=== PATIENT | female | born 1990 | race Caucasian/White ===

== ENCOUNTER 2024-08-27 14:19 | Observation (INO) | payer OTHER, SELFPAY ==
[2024-08-27] VITALS (8 sets, daily range): BP systolic 102–136; BP diastolic 66–91; BMI 26.2
--- NOTE | 2024-08-27 10:11 | ED.GENMED ---
ED Provider Triage
<Michael Harris PA-C - Last Filed: 08/27/24 10:12>
-
Patient seen by provider in Triage?: Seen in Triage
34-year-old otherwise healthy female presents with epigastric abdominal pain that radiates to the back. There is associated nausea without vomiting.
Vital signs are stable through triage
Recommended further assessment. Labs ordered as well as ultrasound
History of Present Illness
<Michael Harris PA-C - Last Filed: 08/27/24 10:12>
General
Chief Complaint: Abdominal Symptoms
Time Seen by Provider: 08/27/24 10:18
<Ace Coburn PA-C - Last Filed: 08/27/24 13:25>
General
Source: patient
History of Present Illness
History of Present Illness:
34-year-old female with past medical history of anxiety and depression, previous substance abuse status post duodenal switch surgery a year and a half ago presenting to the emergency department for evaluation of waxing and waning upper abdominal
pain over the last 1 to 2 weeks, worse with eating and associated with nausea but no vomiting. Patient notes minimal p.o. intake to solids during this time but is still able to tolerate liquid. States pain prior to arrival was quite significant
but at present time is now much more mild. Pain initially started across the upper abdomen, now mainly mid abdomen and radiating towards her back. Did not take anything for the pain prior to arrival today.
Past History
<Michael Harris PA-C - Last Filed: 08/27/24 10:12>
Past History
ED Past Medical History: Psychiatric (anx/dep, PTSD, heroine addiction) and Other (Hepatitis C,)
Social History
Tobacco: Non-smoker
Alcohol: None
Drug: None
Personal: Single
Living: with family
Family History
Family History: Hypertension
<Ace Coburn PA-C - Last Filed: 08/27/24 13:25>
Past History
ED Past Surgical History: and Other
Social History
Personal:
Review of Systems
<Ace Coburn PA-C - Last Filed: 08/27/24 13:25>
Review of Systems
All Other Systems: ROS reviewed and negative except as documented in HPI and ROS
Phy Exam
<Ace Coburn PA-C - Last Filed: 08/27/24 13:25>
Physical Exam
Physical Exam:
GENERAL: Alert , in no apparent distress
EYE: clear conjunctiva b/l
HEAD: NCAT
ENT: mmm.
CARDIAC: Regular rate and rhythm .
LUNGS: Clear breath sounds bilaterally, no acute respiratory distress, no wheezes/rales/rhonchi
ABDOMEN: Soft, without focal tenderness, no r/g, no cvat
NEUROLOGICAL: Alert and oriented
SKIN: Warm and dry, skin intact.
MUSCULOSKELETAL: well perfused.
PSYCH: Normal and appropriate interaction.
Scores
<Ace Coburn PA-C - Last Filed: 08/27/24 13:25>
Heart Failure Risk
Heart Failure Risk Score: Not Applicable
Heart Score for Chest Pain Patients
STEMI patient?: Not applicable
Withdrawal Assessment of Alcohol
Withdrawal Assessment Completed?: Not applicable
Course
<Michael Harris PA-C - Last Filed: 08/27/24 10:12>
Orders/Labs/Results
Orders:
Orders
08/27/24 10:10
Test Result ONCE
US Abdomen - Appendix Only Urgent
Comment:
Reason For Exam: epigastric pain
08/27/24 10:33
Complete Blood Count/With Diff Urgent
Urinalysis Reflex To Culture Urgent
Date Specimen was Collected: 08/27/24
Time Specimen was Collected: 10:18
Urine Microscopic Reflex Cult Urgent
08/27/24 11:03
US Abdomen Complete/Upper Urgent
Comment:
Reason For Exam: upper abd pain
08/27/24 11:50
Comprehensive Metabolic Panel Urgent
HCG, Serum Qualitative Screen Urgent
Lipase Urgent
08/27/24 11:54
Ketorolac [Toradol] 30 mg IV NOW STA
Abnormal Lab Results
08/27/24 08/27/24
10:33 11:50
RBC 3.99 L 10^6/uL
(4.20-5.40)
Hgb 11.7 L g/dL
(12.0-16.0)
Hct 35.2 L %
(37.0-47.0)
Lipase 20 L U/L
(23-300)
Ur Occult Blood Reflex 3+ A
(Negative)
Urine Bilirubin 1+ A
(Negative)
Leukocyte Esterase Rfl Trace A
(Negative)
Urine RBC 90-100 A /HPF
(0-2)
Urine Bacteria (Reflex) Few A
(Negative)
08/27/24 10:33
08/27/24 11:50
Vital Signs
Initial and Last Documented VS:
Initial Vital Signs
Temp Pulse Resp BP Pulse Ox
99.2 F 114 18 136/91 100
08/27/24 10:09 08/27/24 10:09 08/27/24 10:09 08/27/24 10:09 08/27/24 10:09
Last Documented Vital Signs
Temp Pulse Resp BP Pulse Ox
99.2 F 97 17 124/73 100
08/27/24 10:09 08/27/24 12:30 08/27/24 12:30 08/27/24 12:03 08/27/24 12:30
<Ace Coburn PA-C - Last Filed: 08/27/24 13:25>
Orders/Labs/Results
Orders:
Orders
08/27/24 10:10
Test Result ONCE
US Abdomen - Appendix Only Urgent
Comment:
Reason For Exam: epigastric pain
08/27/24 10:33
Complete Blood Count/With Diff Urgent
Urinalysis Reflex To Culture Urgent
Date Specimen was Collected: 08/27/24
Time Specimen was Collected: 10:18
Urine Microscopic Reflex Cult Urgent
08/27/24 11:03
US Abdomen Complete/Upper Urgent
Comment:
Reason For Exam: upper abd pain
08/27/24 11:50
Comprehensive Metabolic Panel Urgent
HCG, Serum Qualitative Screen Urgent
Lipase Urgent
08/27/24 11:54
Ketorolac [Toradol] 30 mg IV NOW STA
Abnormal Lab Results
08/27/24 08/27/24
10:33 11:50
RBC 3.99 L 10^6/uL
(4.20-5.40)
Hgb 11.7 L g/dL
(12.0-16.0)
Hct 35.2 L %
(37.0-47.0)
Lipase 20 L U/L
(23-300)
Ur Occult Blood Reflex 3+ A
(Negative)
Urine Bilirubin 1+ A
(Negative)
Leukocyte Esterase Rfl Trace A
(Negative)
Urine RBC 90-100 A /HPF
(0-2)
Urine Bacteria (Reflex) Few A
(Negative)
08/27/24 10:33
08/27/24 11:50
Vital Signs
Initial and Last Documented VS:
Initial Vital Signs
Temp Pulse Resp BP Pulse Ox
99.2 F 114 18 136/91 100
08/27/24 10:09 08/27/24 10:09 08/27/24 10:09 08/27/24 10:09 08/27/24 10:09
Last Documented Vital Signs
Temp Pulse Resp BP Pulse Ox
99.2 F 97 17 124/73 100
08/27/24 10:09 08/27/24 12:30 08/27/24 12:30 08/27/24 12:03 08/27/24 12:30
<Ace Coburn PA-C - Last Filed: 08/27/24 13:25>
MDM/Problems Addressed
Differential Diagnosis Includes:
Symptomatic cholelithiasis, cholecystitis, choledocholithiasis, pancreatitis, GERD/gastritis
MDM/Problems Addressed:
34-year-old female presenting to the emergency department for evaluation of 1 to 2 weeks of upper abdominal pain with nausea and decreased p.o. intake to solids. Symptoms much worse when attempting to eat. Presently symptoms are okay but still
with some mild discomfort. Labs and ultrasound were ordered in triage. Reassessment following
<Ace Coburn PA-C - Last Filed: 08/27/24 13:25>
*Radiology
Radiology exam reviewed: radiology read reviewed
*Pulse Oximetry
Patient hypoxic: no
*Critical Care Note
Total Time (30-74mins, 75-104mins- exclusive of procedures): Not Applicable
<Ace Coburn PA-C - Last Filed: 08/27/24 13:25>
Patient Management
Discussion with other providers: Hospitalist and [employer] Operator
Escalation/DeEscalation of care consider admission/obs:
Upon returning from ultrasound patient is requesting something for pain as her pain was aggravated during the ultrasound. 30 mg of Toradol IV ordered.
Following Toradol patient did note improvement of pain. Ultrasound showed dilation of the common bile duct to 9 mm as well as mobile gallstones but no definitive for cholecystitis or choledocholithiasis. Given continuously worsening symptoms and
difficulty tolerating p.o. will admit for further evaluation with plan for MRCP. GI and general surgery were notified. They will consult as needed and hospitalist team to admit.
ED Attending Note
<Michael Harris PA-C - Last Filed: 08/27/24 10:12>
-
Portions of this chart may have been created with voice recognition software.� Occasional wrong word or��sound alike� substitutions may have occurred due to the inherent limitations of voice recognition software.
Discharge Plan
Departure
Patient Disposition: Admit
Date of Disposition: 08/27/24
Time of Disposition: 12:31
Presentation/result/management discussed w/ accepting MD/DO: Hospitalist
Discharge Problem:
Symptomatic cholelithiasis, Choledocholithiasis
Prescriptions:
No Action
methadone [Methadose] 10 MG/ML concentrate
80 mg PO BID
PNV cmb#95-ferrous fumarate-FA [] 1 EACH tablet
1 ea PO DAILY
Referrals:
Lenny Merrill MD [Family Provider] -
Interventions
Interventions:
*Risk Screen - Suicide Last Done: 08/27/24 10:08
*General Assessment Last Done: 08/27/24 10:10
*Neglect/Abuse Screening Last Done: 08/27/24 10:08
ED- Fall Risk Assessment Last Done: 08/27/24 10:09
*ED COVID-19 Vaccine History Last Done: 08/27/24 10:09
KX-Hxmsgy-Yesujigesv Assessment Last Done: 08/27/24 10:25
Discharge Date and Time
Print Language: IRISH
[2024-08-27 10:46] LABS: % Basophils 0.4 % (0-2); % Eosinophils 1.4 % (0-6); % Immature Granulocytes 0.3 % (0-0.5); % Lymphocytes 37.6 % (20.5-51.1); % Monocytes 4.6 % (1.7-9.3); % Neutrophils 55.7 % (42.2-75.2); Absolute Eosinophils 0.1 10^3/uL (0-0.7); Absolute Lymphocytes 2.7 10^3/uL (1.2-3.4); Absolute Monocytes 0.3 10^3/uL (0.1-0.6); Hematocrit 35.2 % (37.0-47.0); Hemoglobin 11.7 g/dL (12.0-16.0); Mean Corp Hgb Conc. 33.2 g/dL (33.0-37.0); Mean Corpuscular Hgb 29.3 pg (27.0-31.0); Mean Corpuscular Volume 88.2 fL (81.0-99.0); Mean Platelet Volume 10.2 fL (7.4-10.4); Nucleated Red Blood Cells % 0 %; Platelet Count 233 10^3/uL (130-400); Red Blood Cell Count 3.99 10^6/uL (4.20-5.40); Red Cell Dist. Width 12.6 % (11.5-14.5); White Blood Cell Count 7.2 10^3/uL (4.8-10.8)
[2024-08-27 10:47] LABS: Urine Albumin Trace (Neg - Trace); Urine Bilirubin 1+ (Negative); Urine Character Slightly Cloudy (Clear); Urine Color Yellow; Urine Glucose Negative (Negative); Urine Ketone Negative (Negative); Urine Leukocyte Trace (Negative); Urine Nitrite Negative (Negative); Urine Occult Blood 3+ (Negative); Urine Urobilinogen 1+ (Neg - 1+)
[2024-08-27 11:05] LABS: Urine Mucus Many; Urine Squamous Cell >30 /LPF (Few)
[2024-08-27 11:06] LABS: Urine Red Blood Cell 90-100 /HPF (0-2)
[2024-08-27 11:07] LABS: Urine Bacteria Few (Negative); Urine Calcium Oxalate Crystals Seen; Urine White Cell 0-2 /HPF (0-5)
[2024-08-27] MEDS: TORADOL 30 MG IV (12:00)
[2024-08-27 12:15] LABS: ALT (SGPT) 22 U/L (0-35); AST (SGOT) 31 U/L (14-36); Albumin 3.6 g/dl (3.5-5.0); Alkaline Phosphatase 64 U/L (38-126); Blood Urea Nitrogen 13 mg/dl (7-17); Carbon Dioxide 25 mmol/L (22-30); Chloride 106 mmol/L (98-107); Estimated Creatinine Clearance 104 ml/min; Glucose 71 mg/dl (70-99); Lipase 20 U/L (23-300); Potassium 4.1 mmol/L (3.5-5.1); Sodium 141 mmol/L (135-145); Total Bilirubin 0.4 mg/dl (0.2-1.3); Total Protein 6.5 g/dl (6.3-8.2); eGFR > 60.00
[2024-08-27 12:17] LABS: HCG, Serum Qualitative Screen Negative
--- NOTE | 2024-08-27 13:16 | HPS.HSE ---
Family Physician
-
Family Physician: Lenny Merrill
Chief Complaint
-
Abdominal Pain
History of Present Illness
Patient is a 34 y/o female past medical history of hypertension, anxiety / depression / PTSD and remote heroin abuse now on methadone who presents with abdominal pain. Patient reports she had duodenal switch for weight loss about 18 months. She
notes since that time she has been experiencing some intermittent abdominal pain. She reports over the last two week symptoms have been getting progressively worse. She describes pain mostly in the epigastric region, but last night started
radiating around her left rib cage to her back. She reports nausea after eating. She denies diarrhea. She fevers, sweats or chills.
Medical History
Past Medical History
Past Medical History: Reports Other
Additional Past Medical History:
Hypertension
Hypothyroidism
Anxiety / Depression / PTSD
Heroin Abuse
Hepatitis C (Antibody positive, Viral Load negative per patient)
Past Surgical History: Reports Other
Additional Past Surgical History:
Section
Duodenal Switch
Social History
Tobacco: Smoker (5 cigarettes per day)
Alcohol: None
Drug: Former User (Prior heroin use, sober for over 10 years)
Family History
Family History: Not pertinent
Allergies / Home Medications
Allergies reflects when Allergies were last updated in [facility].
Home Medications with original date entered in [facility]
Allergy/Medication List:
Allergies
Allergy/AdvReac Type Severity Reaction Status Date / Time
metals Allergy Rash Uncoded 10/03/23 23:13
Home Medications
methadone 10 mg/mL oral concentrate (Methadose) 80 mg PO BID 01/27/19
vit no.95-ferrous fumarate 28 mg-folic acid 800 mcg tablet () 1 ea PO DAILY 01/27/19
Review of Systems
-
A 12 point ROS was completed and negative except as noted: Yes
Constitutional: Denies Fever or Chills
Respiratory: Denies Cough or Trouble Breathing
Cardiac: Denies Chest Pain or Palpitations
Abdomen/GI: Reports See HPI
Physical Exam
Vital Signs
Vital Signs
Temp Pulse Resp BP Pulse Ox
99.2 F 97 17 124/73 100
08/27/24 10:09 08/27/24 12:30 08/27/24 12:30 08/27/24 12:03 08/27/24 12:30
Physical Exam
General: Comfortable and Conversant
HEENT: Anicteric and Moist mucous membranes
Respiratory: Clear and Non Labored Respirations
Cardiac: S1/S2 and Regular Rhythm
GI: Soft and Tender (Mild epigastric and left upper quadrant without rebound or gaurding)
Rectal: Deferred by Provider
Musculoskeletal: No Clubbing, No Cyanosis and No Edema
Skin: Warm and Dry
Neuro: Awake, Alert, Oriented and Nonfocal/grossly intact
Psych: Calm
Laboratory Results
-
08/27/24 10:33
08/27/24 11:50
Laboratory Results
Total Bilirubin 0.4 mg/dl (0.2-1.3) 08/27/24 11:50
AST 31 U/L (14-36) 08/27/24 11:50
ALT 22 U/L (0-35) 08/27/24 11:50
Alkaline Phosphatase 64 U/L (38-126) 08/27/24 11:50
Lipase 20 U/L (23-300) L 08/27/24 11:50
Abdomen/Appendix Ultrasound:
Mobile gallstones/sludge without sonographic evidence of acute cholecystitis.
The common bile duct is mildly dilated measuring 9 mm. No discrete choledocholithiasis. Recommend correlation with lab values for possible biliary obstruction.
No sonographic evidence of appendicitis.
Data Reviewed
-
Diagnostic Radiology: Report Reviewed by me
Lab Data: Labs Reviewed by me
Impression/Plan
-
Abdominal Pain, unclear etiology possibly biliary-related
-Check Abd MRI
-Allow clear liquids
-Pain control with Toradol
-Consult GI and General Surgery
Hypertension
-Continue lisinopril
Hypothyroidism
-Continue levothyroxine
Hx Heroin Abuse
-Continue methadone
DVT proph: Lovenox
Code Status: Full Code
--- NOTE | 2024-08-27 13:30 | PHANOTE ---
MED REC NOTE- CALLED [facility] AT [phone] , SPOKE TO REMA WHO GAVE ME A VERBAL DOSAGE VERIFICATION OVER THE PHONE AND I FAXED A MEDICAL RELEASE FORM SHE ASKED FOR.
--- NOTE | 2024-08-27 13:41 | W.PN.UPDATE ---
Update Note
Progress Note Update
This is an addendum to H&P written by JUANITA Ulrich
I saw and examined the patient.
The SANDWICH MAKER's note was reviewed and I agree with the note.
Comment:
Ms. Africa Hough is a 34 yo woman with hx heroin abuse now on methadone, s/p duodenal switch procedure 17 months ago presents to the ER with increasing frequency of abdominal pain. Pain is worse with eating and associated with nausea, no
vomiting.
Triage vitals with T 99.2, P 114, BP 136/91. On exam, she is conversant, in no acute distress. Mildly tender epigastric to left upper quadrant. Labs without leukocytosis and normal liver enzymes.
Appendix US:
IMPRESSION: No sonographic evidence of appendicitis.
Abdomen US:
IMPRESSION:
Mobile gallstones/sludge without sonographic evidence of acute cholecystitis.
The common bile duct is mildly dilated measuring 9 mm. No discrete choledocholithiasis. Recommend correlation with lab values for possible biliary obstruction.
spleen and pancreas normal
Abdominal pain with finding of multiple gall stones raising concern for biliary colic versus choledocholithiasis
-no e/o acute cholecystitis
-admit for further work-up with MRI/MRCP
-GI and GS consult
-pain control with PRN Toradol
Hx IVDA now on standing methadone
-continue home methadone dosing
[2024-08-27] MEDS: TORADOL 15 MG IV (17:52)
--- NOTE | 2024-08-27 18:33 | W.PN.UPDATE ---
Update Note
Progress Note Update
Notified by nursing that patient wanted to sign out against medical advice.
Patient expresses concern about being able to get her methadone as her usual pick-up is tomorrow morning. We reviewed that she will be given her methadone during her hospitalization. Despite my reassurance patient would still like to leave because
if she is discharged on Sunday she will not be able to get her methadone until Sunday morning.
I reviewed with patient that leaving could result in worsening abdominal pain, worsening biliary dysfunction or sepsis from ascending cholangitis. Patient is aware of the risks. I reviewed with her to come back to the emergency department if she
develops fevers or worsening abdominal pain. If she opts not to the return to the emergency department I encouraged her to follow-up with surgery as an outpatient.
AMA Paper Signed
== END 2024-08-27 18:59 | disposition left against medical advice (07) ==
LOC: ED 14:19
PROVIDERS: Physician Assistant; ADMITTING PHYSICIAN Student in an Organized Health Care Education/Training Program; EMERGENCY PHYSICIAN Student in an Organized Health Care Education/Training Program; FAMILY PHYSICIAN Family Medicine
DX: R10.10 Upper abdominal pain, unspecified (principal); K80.20 Calculus of gallbladder without cholecystitis without obstruction; R11.2 Nausea with vomiting, unspecified; F41.9 Anxiety disorder, unspecified; F32.A Depression, unspecified; F11.20 Opioid dependence, uncomplicated; F43.10 Post-traumatic stress disorder, unspecified; B19.20 Unspecified viral hepatitis C without hepatic coma; R10.13 Epigastric pain; I10 Essential (primary) hypertension; E03.9 Hypothyroidism, unspecified; F17.210 Nicotine dependence, cigarettes, uncomplicated; Z91.048 Other nonmedicinal substance allergy status; Z82.49 Family history of ischemic heart disease and other diseases of the circulatory system
CPT/HCPCS: 76700; 76705; 80053; 81003; 81015; 83690; 84703; 85025; 96374; 99285

== ENCOUNTER → 2025-02-09 09:11 | Outpatient (REF) | payer OTHER, SELFPAY | LOC: RAD 09:11 | PROVIDERS: ATTENDING PHYSICIAN Obstetrics & Gynecology; PRIMARYCARE PHYSICIAN Family Medicine | DX: O26.859 Spotting complicating pregnancy, unspecified trimester (principal) | CPT/HCPCS: 76801; 76817 ==

== ENCOUNTER → 2025-03-17 09:43 | Outpatient (REF) | payer OTHER, SELFPAY | LOC: PNTC 09:43 | PROVIDERS: ATTENDING PHYSICIAN Obstetrics & Gynecology | DX: Z36.0 Encounter for antenatal screening for chromosomal anomalies (principal); Z36.82 Encounter for antenatal screening for nuchal translucency | CPT/HCPCS: 76801; 76813 ==

== ENCOUNTER 2025-03-29 03:26 | Emergency (ER) | payer OTHER, SELFPAY ==
[2025-03-29 03:27] VITALS: BP 144/76
[2025-03-29 03:50] VITALS: BMI 25.9
--- NOTE | 2025-03-29 03:50 | EDRN ---
Pt 14 wks 4 days G4A1P2. Pt woke around 0250 and went to the bathroom to have a BM. Pt then urinated. When she was finished and still on the toilet, pt felt 'a water balloon fell out and popped.' Initially there was no blood in the
toilet but then there was an approximate quarter sized amount of blood. Pt called her OBGYN and left a message. Pt then noted more blood which prompted ED visit. Pt says she has some watery pink fluid on her pad now and says leakage has stopped.
Pt had mild cramps in the car ride to the ED and says they went away. Pt adds she had a hematoma in the beginning of her that resolved. Pt denies fever/chills, n/v, abd pain/cramping now, cp, sob.
[2025-03-29 04:29] LABS: % Basophils 0.4 % (0-2); % Eosinophils 1.3 % (0-6); % Immature Granulocytes 0.1 % (0-0.5); % Lymphocytes 40.9 % (20.5-51.1); % Monocytes 5.4 % (1.7-9.3); % Neutrophils 51.9 % (42.2-75.2); Absolute Eosinophils 0.1 10^3/uL (0-0.7); Absolute Lymphocytes 2.9 10^3/uL (1.2-3.4); Absolute Monocytes 0.4 10^3/uL (0.1-0.6); Absolute Neutrophils 3.7 10^3/uL (1.4-6.5); Hematocrit 33.2 % (37.0-47.0); Hemoglobin 11.2 g/dL (12.0-16.0); Mean Corp Hgb Conc. 33.7 g/dL (33.0-37.0); Mean Corpuscular Hgb 29.9 pg (27.0-31.0); Mean Corpuscular Volume 88.8 fL (81.0-99.0); Mean Platelet Volume 9.2 fL (7.4-10.4); Nucleated Red Blood Cells % 0 %; Platelet Count 277 10^3/uL (130-400); Red Blood Cell Count 3.74 10^6/uL (4.20-5.40); Red Cell Dist. Width 11.9 % (11.5-14.5); White Blood Cell Count 7.1 10^3/uL (4.8-10.8)
[2025-03-29 04:40] VITALS: BP 122/79
--- NOTE | 2025-03-29 06:02 | ED.GENMED ---
History of Present Illness
General
Chief Complaint: Problems
Source: patient
Time Seen by Provider: 03/29/25 05:45
History of Present Illness
History of Present Illness:
This patient is a 34-year-old female G4, P3 who presents emergency department with vaginal bleeding that she noted just prior to presentation. She estimates that she is approximately 14-1/2 weeks gestation. She denies any other complaints the
exception of lower abdominal cramping.
Past History
Past History
ED Past Medical History: Psychiatric (anx/dep, PTSD, heroine addiction) and Other (Hepatitis C,)
ED Past Surgical History: and Other
Social History
Tobacco: Non-smoker
Alcohol: None
Drug: None
Personal:
Living: with family
Family History
Family History: Hypertension
Phy Exam
Physical Exam
Physical Exam:
GENERAL: Alert , in no apparent distress
EYE: pupils equal and reactive
NECK: Supple, no significant adenopathy.
ENT: o/p clr, mmm.
CARDIAC: Regular rate and rhythm .
LUNGS: Clear breath sounds bilaterally, no acute respiratory distress, no wheezes/rales/rhonchi
ABDOMEN: Soft, without focal tenderness, no r/g, no cvat
NEUROLOGICAL: Alert and oriented, no focal neuro deficits
SKIN: Warm and dry, skin intact.
MUSCULOSKELETAL: No edema, well perfused.
PSYCH: Normal and appropriate interaction.
Course
Orders/Labs/Results
Orders:
Orders
03/29/25 04:02
US 2nd/3rd Trimester Urgent
Comment:
Reason For Exam: pt 14wk 4 days - concern water broke
03/29/25 04:15
Type+Screen Urgent
Beta HCG Quantitative Urgent
Is this a screen?: No
Complete Blood Count/With Diff Urgent
Abnormal Lab Results
03/29/25
04:15
RBC 3.74 L 10^6/uL
(4.20-5.40)
Hgb 11.2 L g/dL
(12.0-16.0)
Hct 33.2 L %
(37.0-47.0)
03/29/25 04:15
Vital Signs
Initial and Last Documented VS:
Initial Vital Signs
Temp Pulse Resp BP Pulse Ox
98.1 F 114 20 144/76 100
03/29/25 03:27 03/29/25 03:27 03/29/25 03:27 03/29/25 03:27 03/29/25 03:27
Last Documented Vital Signs
Temp Pulse Resp BP Pulse Ox
98.1 F 94 18 116/65 100
03/29/25 03:27 03/29/25 07:47 03/29/25 07:47 03/29/25 07:47 03/29/25 07:47
Information
Weeks gestation: N/A
Location: N/A
*Critical Care Note
Total Time (30-74mins, 75-104mins- exclusive of procedures): Not Applicable
Update Note
Update Note:
Patient presents to the Emergency Department with __vaginal bleeding and cramping
Number and Complexity of Problems Addressed at the Encounter
� Chronic conditions affecting care:
� Acute Exacerbation and/or Progression of Chronic Illness:
� Differential Diagnosis includes: But not limited to threatened AB, normal , etc. etc.
Amount and/or Complexity of Data to be Reviewed and Analyzed
� I performed an independent evaluation of and my interpretation is:
EKG:
CT:
Xrays:
Laboratory Studies: Generally unremarkable, Rh+, beta approximately 52,000.
Other: Verbal report ultrasound vision rupture of membranes, minimal fluid present, cervix slightly dilated.
� Review of other/old records reveals:
� Clinical information was obtained by an independent historian:
� Prescriptions/Medications Considered but not given:
� Further testing considered but not performed:
Risk of Complications and/or Morbidity or Mortality of Patient Management
� Social determinants of health affecting care:
� Discussion with other providers (PCP, Hospitalists, Consultants, etc):
� Escalation of care including admission/observation vs risk of discharge considered: 6:03 AM shortly after returning from ultrasound she developed the sense that she needed to use the bathroom with lower abdominal pain. I did a
vaginal speculum exam and there is a small amount of mucus and blood in the vaginal vault. She then indicated that she needed to urinate. Speculum was removed and patient was placed on a bedpan. Dr Valencia aware
After ultrasound report, Dr. Valencia made aware who is now at bedside. She has not yet passed the but is expected to do so soon. She would prefer to go home with expectant management with Dr. Miramontes is approving of. Patient was given a
specimen collection been and given close instructions regarding specimen collection, importance of follow-up, and reasons to return to the ER.
ED Attending Note
-
Portions of this chart may have been created with voice recognition software.� Occasional wrong word or��sound alike� substitutions may have occurred due to the inherent limitations of voice recognition software.
Discharge Plan
Departure
Patient Disposition: Home (Routine Discharge)
Date of Disposition: 03/29/25
Time of Disposition: 07:38
Patient with high blood pressure during this ER visit?: Yes
Condition: Good
Discharge Problem:
Miscarriage
Instructions: Miscarriage (DC), BLOOD PRESSURE
Prescriptions:
No Action
methadone [Methadose] 10 MG/ML concentrate
127 mg PO DAILY
Patient Comments:
PATIENT HAS TAKE HOME BOTTLES AND HAS TWO 82MG BOTTLES FOR TODAY BUT I INFORMED SHE TOOK BOTH DOSES FOR TODAY 08/27/24 AND IS DUE TOMORROW 08/28/24
acetaminophen [Tylenol] 325 mg Tablet
650 mg PO Q4HPRN PRN (Reason: MILD PAIN)
Theragen Tablet
1 tab PO DAILY
ferrous sulfate 325 mg (65 mg iron) Tablet
650 mg PO DAILY
biotin 1 mg Tablet
1 mg PO DAILY
cholecalciferol (vitamin D3) [Vitamin D3] 25 mcg (1,000 unit) Tablet
25 mcg PO DAILY
cyclobenzaprine [Flexeril] 10 mg Tablet
10 mg PO BID PRN (Reason: back spasms)
methadone 10 mg/5 mL Solution
132 mg PO .AFTERNOON
nifedipine 30 mg Tablet Extended Release
30 mg PO DAILY
famotidine [Pepcid] 20 mg Tablet
20 mg PO DAILY
1 tab PO DAILY
Referrals:
Chaz Watson MD [Family Provider] -
Elizabeth Miramontes DO [Active] - Next open appointment
Activity Restrictions/Additional Instructions:
Please follow Dr. Miramontes's instructions regarding close follow-up, specimen collection, and reasons to return the emergency department. IF YOU DEVELOP PERSISTENT PAIN, FEVER, CHEST PAIN, SHORTNESS OF BREATH, HEAVY BLEEDING, OR OTHER WORRISOME
SIGNS, PLEASE RETURN TO THE ER IMMEDIATELY!
Interventions
Interventions:
*Risk Screen - Suicide Last Done: 03/29/25 03:27
*General Assessment Last Done: 03/29/25 03:38
*Neglect/Abuse Screening Last Done: 03/29/25 03:27
*ED- Fall Risk Assessment Last Done: 03/29/25 04:18
*ED COVID-19 Vaccine History Last Done: 03/29/25 08:22
*Nursing Disposition Last Done: 03/29/25 08:22
ED-Female Genitourinary Assessment Last Done: 03/29/25 03:50
Discharge Date and Time
Discharge Date/Time: 03/29/25 08:23
Print Language: TURKISH
--- NOTE | 2025-03-29 06:10 | EDRN ---
Pt tearful upon returning from US. Pt complained of pain and said she had the urge to push. Pt on cell phone with her OBGYN informing her of what was going on. Dr Matthews to bedside, performed pelvic exam. Pt stated she had to go to the bathroom.
Pt placed on bedpan but was unable to urinate and asked to go to the bathroom. Pt ambulatory to bathroom, two hats and emesis basin placed in toilet in case anything besides urine is released. Pt said 'only urine came out, nothing else.'
--- NOTE | 2025-03-29 06:16 | EDRN ---
Pt voided urine in hat, small clot about size of a quarter and two very tiny clots noted in urine voided. Pt says pressure is gone now and she feels better.
[2025-03-29 07:47] VITALS: BP 116/65
== END 2025-03-29 08:23 | disposition home or self-care (01) ==
LOC: EMR 03:26
PROVIDERS: EMERGENCY PHYSICIAN Emergency Medicine; FAMILY PHYSICIAN Otolaryngology
DX: O03.9 Complete or unspecified spontaneous abortion without complication (principal)
CPT/HCPCS: 99284; 76805; 84702; 85025; 86850; 86900; 86901

== ENCOUNTER → 2025-04-01 14:35 | Outpatient (REF) | payer OTHER, SELFPAY | LOC: PNTC 14:35 | PROVIDERS: ATTENDING PHYSICIAN Obstetrics & Gynecology | DX: O36.80X0 Pregnancy with inconclusive fetal viability, not applicable or unspecified (principal); O42.912 Preterm premature rupture of membranes, unspecified as to length of time between rupture and onset of labor, second trimester; O35.5XX0 Maternal care for (suspected) damage to fetus by drugs, not applicable or unspecified; O10.012 Pre-existing essential hypertension complicating pregnancy, second trimester; O99.842 Bariatric surgery status complicating pregnancy, second trimester; B18.2 Chronic viral hepatitis C; O99.332 Smoking (tobacco) complicating pregnancy, second trimester | CPT/HCPCS: 76815 ==

== ENCOUNTER 2025-04-03 03:44 | Day surgery (SDC) | payer OTHER, SELFPAY ==
[2025-04-02 20:33] VITALS: BP 118/73
--- NOTE | 2025-04-02 20:37 | ED.GENMED ---
History of Present Illness
<Shelby Matthews MD - Last Filed: 04/02/25 20:48>
General
Chief Complaint: Problems
Source: patient, spouse and family
Time Seen by Provider: 04/02/25 20:32
History of Present Illness
History of Present Illness:
This patient is a G4, P3 female with EDC 09/23/2025 presented with a 14-1/2-week gestation on Sunday morning, at that time she was noted to have ultrasound consistent with ruptured membranes, and incompatible with survival, cervix was noted to be
dilated and considered an inevitable miscarriage. At that time, she elected, after consultation bedside with her OBSTETRICS NURSE, to go home with close follow-up. She presents tonight because she passed the , but has not yet passed the placenta.
This occurred approximately 50 minutes ago. She denies pain, bleeding, fever, chills, or other complaints. Patient is noted to be Rh+
Past History
<Shelby Matthews MD - Last Filed: 04/02/25 20:48>
Past History
ED Past Medical History: Psychiatric (anx/dep, PTSD, heroine addiction) and Other (Hepatitis C,)
ED Past Surgical History: and Other
Social History
Tobacco: Non-smoker
Alcohol: None
Drug: None
Personal:
Living: with family
Family History
Family History: Hypertension
Phy Exam
<Shelby Matthews MD - Last Filed: 04/02/25 20:48>
Physical Exam
Physical Exam:
GENERAL: Alert , in no apparent distress but understandably upset
EYE: pupils equal and round
NECK: Supple
ENT: mmm
CARDIAC: Regular rate and rhythm .
LUNGS: Clear breath sounds bilaterally, no acute respiratory distress, no wheezes/rales/rhonchi
ABDOMEN: Soft, without focal tenderness, no r/g
NEUROLOGICAL: Alert and oriented, grossly nonfocal
SKIN: Warm and dry, skin intact.
MUSCULOSKELETAL: No edema, well perfused.
PSYCH: Normal and appropriate interaction.
: poc fully expelled, cord noted from vagina, no active bleeding.
Course
<Shelby Matthews MD - Last Filed: 04/02/25 20:48>
Orders/Labs/Results
Orders:
Orders
04/02/25 20:35
0.9% Sodium Chloride 500 ml [Nss] 500 ml IV BOLUS
Oxytocin [Pitocin] 10 units IM NOW STA
04/02/25 20:37
Type And Crossmatch [Type+Screen] Urgent
Complete Blood Count/No Diff Urgent
04/02/25 20:43
LDRP Pathology Routine
Pre-Operative Diagnosis: threatened ab
Operative Procedure: na
Gestational Age: 15 weeks
Tissue Submitted: Other
Other Tissue Submitted: poc
04/03/25 00:41
Lidocaine 2% Mpf [Xylocaine Mpf 2%] 100 mg .ROUTE .STK-MED ONE
Propofol [Diprivan] 20 ml .ROUTE .STK-MED
04/03/25 00:42
Succinylcholine Chloride [Succinylcholine] 200 mg .ROUTE .STK-MED ONE
04/03/25 00:48
Midazolam HCl [Versed] 2 mg .ROUTE .STK-MED ONE
04/03/25 01:00
Flush (0.9% Sodium Chloride) [Flush (Nss)] See Dose Instructions IV PER PROTOCOL
04/03/25 01:29
CeFAZolin SODIUM [Ancef] 2,000 mg .ROUTE .STK-MED ONE
04/03/25 01:56
Methylergonovine Maleate [Methergine Injection] 0.2 mg .ROUTE .STK-MED ONE
miSOPROStol [Cytotec] 800 mcg .ROUTE .STK-MED ONE
04/03/25 01:58
OR Pathology Routine
Clinical History: retained placenta
Pre-Operative Diagnosis: retained placenta
Post-Operative Diagnosis: retained placenta
Operative Procedure: dilation and evacuation
Surgeon: van
Circulating Nurse: prasanna
Specimen Type: retained placenta
04/03/25 02:01
Methylergonovine Maleate [Methergine Injection] 0.2 mg .ROUTE .STK-MED ONE
04/03/25 02:18
Admit/Transfer Patient As Directed
Co-Sign Provider:
Level of Care: Post Proc/Surg Recovery
Assign to:: Medical/Surgical
Physician / Group: Fe
Transfer to: Medical/Surgical
Diagnosis: S/P Suction D&E and curettage for retained placenta
Patient Condition: Good
Reason for Hospitalization: retained placenta-> D&E
Expected length of stay greater than two midnights?: No
ELOS- Estimated Length of Stay in days: 1
I certify the patient meets the requirements for IP care: Yes
Reason for Overnight Stay: Bleeding/Bleeding Risk
PRN Pain Medication Management As Directed
May give lesser potent ordered pain med per pt: Yes
preference::
Protocol:: Medication orders for pain may be administered in a
manner that supports deferring to patient preference
when the pt is:
- Requesting an ordered lesser potent pain medication.
Least to most potent pain medications are defined
as: acetaminophen < NSAID < tramadol < opioids
(morphine, oxycodone, hydromorphone).
- Requesting a lesser dose of the same medication IF
ORDERED.
- Requesting a less intrusive route of administration
if both routes are prescribed by the provider (PO <
IV).
04/03/25 02:42
Acetaminophen [Tylenol] 650 mg PO Q4HPRN PRN
Ibuprofen [Motrin] 600 mg PO Q4HPRN PRN
Ondansetron Injectable [Zofran] 4 mg IV Q6HPRN PRN
Oxycodone [Roxicodone] 5 mg PO Q4HPRN PRN
Sennosides [Senokot] 8.6 mg PO BIDPRN PRN
Simethicone [Mylicon] 80 mg PO Q6HPRN PRN
04/03/25 02:42
Admit Patient As Directed
Co-Sign Provider:
Level of Care: Post Proc/Surg Recovery
Assign to:: Medical/Surgical
Physician / Group: Fe
Diagnosis: Retained placenta s/p D&E
Patient Condition: Good
Reason for Hospitalization: retained placenta s/p D&E
Expected length of stay greater than two midnights?: No
ELOS- Estimated Length of Stay in days: 1
I certify the patient meets the requirements for IP care: Yes
Reason for Overnight Stay: Bleeding/Bleeding Risk
Diagnosis: post-operative hysterectomy
VTE Contraindication Routine
VTE Mechanical Device Contraindication: Low Risk- LOS < 2 days
Pharmocologic Contraindication: Low Risk- LOS < 2 days
Risk assessment completed and pt is low risk: Yes
Activity As Directed
Activity Level: Out of Bed-Early Mobility
Advance Diet as Tolerated As Directed
Goal Diet: Regular
INT (Intravenous Needle Therapy) As Directed
Intake/ Output As Directed
Frequency: Per unit guidelines
Call for Urine Output less than: 30 mL over 1 hour
Comment: Strict Intake and Output
Notify MD As Directed
Notify physician if: Call doctor for temperature >100.4 F, systolic blood pressure > 150 or < 90, urine output
less than 30 mL over 1 hour, Pulse > 100 or < 50
Observe for Vaginal Bleeding As Directed
Vital Signs As Directed
Frequency: Other
Additional Instructions:: When blood pressure is within the target range:
repeat BP Q10min x 1hr, Q15min x 1hr, Q30min x 1hr, and Q1H x 4hr
Target BP < 160/110 mmHg
Vital Signs As Directed
Frequency: Post-operative guidelines
Call for:: temp > 100.4 F, SBP > 150 or < 90, Pulse > 100 or < 50
Rx Incentive Spirometry [RESP] Routine
Frequency: q1h while awake
04/03/25 Breakfast
Clear Liquid
At Your Request: Full Participation
04/03/25 06:10
Blood Urea Nitrogen IN AM
Complete Blood Count/With Diff IN AM
Creatinine IN AM
Electrolytes IN AM
04/03/25 08:00
Methadone HCl [Methadone 100 mg/10 ml] 132 mg PO DAILY
04/03/25 11:00
Methadone HCl [Methadone 100 mg/10 ml] 132 mg PO DAILY@1100
Abnormal Lab Results
04/02/25
20:37
RBC 3.82 L 10^6/uL
(4.20-5.40)
Hgb 11.5 L g/dL
(12.0-16.0)
Hct 33.3 L %
(37.0-47.0)
04/02/25 20:37
Vital Signs
Initial and Last Documented VS:
Initial Vital Signs
BP
118/73
04/02/25 20:33
Last Documented Vital Signs
Temp Pulse Resp BP Pulse Ox
99.0 F 88 16 110/82 98
04/03/25 10:45 04/03/25 10:45 04/03/25 10:45 04/03/25 10:45 04/03/25 10:45
<Reji Gil, DO - Last Filed: 04/06/25 06:42>
Orders/Labs/Results
Orders:
Orders
04/02/25 20:35
0.9% Sodium Chloride 500 ml [Nss] 500 ml IV BOLUS
Oxytocin [Pitocin] 10 units IM NOW STA
04/02/25 20:37
Type And Crossmatch [Type+Screen] Urgent
Complete Blood Count/No Diff Urgent
04/02/25 20:43
LDRP Pathology Routine
Pre-Operative Diagnosis: threatened ab
Operative Procedure: na
Gestational Age: 15 weeks
Tissue Submitted: Other
Other Tissue Submitted: poc
04/03/25 00:41
Lidocaine 2% Mpf [Xylocaine Mpf 2%] 100 mg .ROUTE .STK-MED ONE
Propofol [Diprivan] 20 ml .ROUTE .STK-MED
04/03/25 00:42
Succinylcholine Chloride [Succinylcholine] 200 mg .ROUTE .STK-MED ONE
04/03/25 00:48
Midazolam HCl [Versed] 2 mg .ROUTE .STK-MED ONE
04/03/25 01:00
Flush (0.9% Sodium Chloride) [Flush (Nss)] See Dose Instructions IV PER PROTOCOL
04/03/25 01:29
CeFAZolin SODIUM [Ancef] 2,000 mg .ROUTE .STK-MED ONE
04/03/25 01:56
Methylergonovine Maleate [Methergine Injection] 0.2 mg .ROUTE .STK-MED ONE
miSOPROStol [Cytotec] 800 mcg .ROUTE .STK-MED ONE
04/03/25 01:58
OR Pathology Routine
Clinical History: retained placenta
Pre-Operative Diagnosis: retained placenta
Post-Operative Diagnosis: retained placenta
Operative Procedure: dilation and evacuation
Surgeon: van
Circulating Nurse: prasanna
Specimen Type: retained placenta
04/03/25 02:01
Methylergonovine Maleate [Methergine Injection] 0.2 mg .ROUTE .STK-MED ONE
04/03/25 02:18
Admit/Transfer Patient As Directed
Co-Sign Provider:
Level of Care: Post Proc/Surg Recovery
Assign to:: Medical/Surgical
Physician / Group: Fe
Transfer to: Medical/Surgical
Diagnosis: S/P Suction D&E and curettage for retained placenta
Patient Condition: Good
Reason for Hospitalization: retained placenta-> D&E
Expected length of stay greater than two midnights?: No
ELOS- Estimated Length of Stay in days: 1
I certify the patient meets the requirements for IP care: Yes
Reason for Overnight Stay: Bleeding/Bleeding Risk
PRN Pain Medication Management As Directed
May give lesser potent ordered pain med per pt: Yes
preference::
Protocol:: Medication orders for pain may be administered in a
manner that supports deferring to patient preference
when the pt is:
- Requesting an ordered lesser potent pain medication.
Least to most potent pain medications are defined
as: acetaminophen < NSAID < tramadol < opioids
(morphine, oxycodone, hydromorphone).
- Requesting a lesser dose of the same medication IF
ORDERED.
- Requesting a less intrusive route of administration
if both routes are prescribed by the provider (PO <
IV).
04/03/25 02:42
Acetaminophen [Tylenol] 650 mg PO Q4HPRN PRN
Ibuprofen [Motrin] 600 mg PO Q4HPRN PRN
Ondansetron Injectable [Zofran] 4 mg IV Q6HPRN PRN
Oxycodone [Roxicodone] 5 mg PO Q4HPRN PRN
Sennosides [Senokot] 8.6 mg PO BIDPRN PRN
Simethicone [Mylicon] 80 mg PO Q6HPRN PRN
04/03/25 02:42
Admit Patient As Directed
Co-Sign Provider:
Level of Care: Post Proc/Surg Recovery
Assign to:: Medical/Surgical
Physician / Group: Fe
Diagnosis: Retained placenta s/p D&E
Patient Condition: Good
Reason for Hospitalization: retained placenta s/p D&E
Expected length of stay greater than two midnights?: No
ELOS- Estimated Length of Stay in days: 1
I certify the patient meets the requirements for IP care: Yes
Reason for Overnight Stay: Bleeding/Bleeding Risk
Diagnosis: post-operative hysterectomy
VTE Contraindication Routine
VTE Mechanical Device Contraindication: Low Risk- LOS < 2 days
Pharmocologic Contraindication: Low Risk- LOS < 2 days
Risk assessment completed and pt is low risk: Yes
Activity As Directed
Activity Level: Out of Bed-Early Mobility
Advance Diet as Tolerated As Directed
Goal Diet: Regular
INT (Intravenous Needle Therapy) As Directed
Intake/ Output As Directed
Frequency: Per unit guidelines
Call for Urine Output less than: 30 mL over 1 hour
Comment: Strict Intake and Output
Notify MD As Directed
Notify physician if: Call doctor for temperature >100.4 F, systolic blood pressure > 150 or < 90, urine output
less than 30 mL over 1 hour, Pulse > 100 or < 50
Observe for Vaginal Bleeding As Directed
Vital Signs As Directed
Frequency: Other
Additional Instructions:: When blood pressure is within the target range:
repeat BP Q10min x 1hr, Q15min x 1hr, Q30min x 1hr, and Q1H x 4hr
Target BP < 160/110 mmHg
Vital Signs As Directed
Frequency: Post-operative guidelines
Call for:: temp > 100.4 F, SBP > 150 or < 90, Pulse > 100 or < 50
Rx Incentive Spirometry [RESP] Routine
Frequency: q1h while awake
04/03/25 Breakfast
Clear Liquid
At Your Request: Full Participation
04/03/25 06:10
Blood Urea Nitrogen IN AM
Complete Blood Count/With Diff IN AM
Creatinine IN AM
Electrolytes IN AM
04/03/25 08:00
Methadone HCl [Methadone 100 mg/10 ml] 132 mg PO DAILY
04/03/25 11:00
Methadone HCl [Methadone 100 mg/10 ml] 132 mg PO DAILY@1100
Abnormal Lab Results
04/02/25
20:37
RBC 3.82 L 10^6/uL
(4.20-5.40)
Hgb 11.5 L g/dL
(12.0-16.0)
Hct 33.3 L %
(37.0-47.0)
04/02/25 20:37
Vital Signs
Initial and Last Documented VS:
Initial Vital Signs
BP
118/73
04/02/25 20:33
Last Documented Vital Signs
Temp Pulse Resp BP Pulse Ox
99.0 F 88 16 110/82 98
04/03/25 10:45 04/03/25 10:45 04/03/25 10:45 04/03/25 10:45 04/03/25 10:45
Information
Weeks gestation: N/A
Location: N/A
<Reji Gil DO - Last Filed: 04/06/25 06:42>
*Critical Care Note
Total Time (30-74mins, 75-104mins- exclusive of procedures): Not Applicable
<Shelby Matthews MD - Last Filed: 04/02/25 20:48>
Update Note
Update Note:
Patient presents to the Emergency Department with passed products of conception____
Number and Complexity of Problems Addressed at the Encounter
� Chronic conditions affecting care:
� Acute Exacerbation and/or Progression of Chronic Illness:
� Differential Diagnosis includes:bu tnot limited to retained placenta, miscarriage, etc etc
Amount and/or Complexity of Data to be Reviewed and Analyzed
� I performed an independent evaluation of and my interpretation is:
EKG:
CT:
Xrays:
Laboratory Studies:
Other:
� Review of other/old records reveals:
� Clinical information was obtained by an independent historian:
� Prescriptions/Medications Considered but not given:
� Further testing considered but not performed:
Risk of Complications and/or Morbidity or Mortality of Patient Management
� Social determinants of health affecting care:
� Discussion with other providers (PCP, Hospitalists, Consultants, etc):
� Escalation of care including admission/observation vs risk of discharge considered: Pt without bleeding or pain at this time. Case d/w Dr Davalos, agrees with 10 mg of oxytocin, ivf, npo, type and screen, cbc and watchful
waiting at this time. TT from Dr Oliveira confirming that lab sending specimen container so we can send poc. Will continue to monitor closely.
<Reji Gil, DO - Last Filed: 04/06/25 06:42>
Update Note
Update Note:
Patient presents to the Emergency Department with passed products of conception____
Number and Complexity of Problems Addressed at the Encounter
� Chronic conditions affecting care:
� Acute Exacerbation and/or Progression of Chronic Illness:
� Differential Diagnosis includes:bu tnot limited to retained placenta, miscarriage, etc etc
Amount and/or Complexity of Data to be Reviewed and Analyzed
� I performed an independent evaluation of and my interpretation is:
EKG:
CT:
Xrays:
Laboratory Studies:
Other:
� Review of other/old records reveals:
� Clinical information was obtained by an independent historian:
� Prescriptions/Medications Considered but not given:
� Further testing considered but not performed:
Risk of Complications and/or Morbidity or Mortality of Patient Management
� Social determinants of health affecting care:
� Discussion with other providers (PCP, Hospitalists, Consultants, etc):
� Escalation of care including admission/observation vs risk of discharge considered: Pt without bleeding or pain at this time. Case d/w Dr Davalos, agrees with 10 mg of oxytocin, ivf, npo, type and screen, cbc and watchful
waiting at this time. TT from Dr Oliveira confirming that lab sending specimen container so we can send poc. Will continue to monitor closely.
0014 Dr. Miramontes at bedside. for OR for further D&E
ED Attending Note
<Shelby Matthews MD - Last Filed: 04/02/25 20:48>
-
Portions of this chart may have been created with voice recognition software.� Occasional wrong word or��sound alike� substitutions may have occurred due to the inherent limitations of voice recognition software.
Discharge Plan
Departure
Patient Disposition: OR
Date of Disposition: 04/03/25
Time of Disposition: 00:15
Admit to: OR
Presentation/result/management discussed w/ accepting MD/DO: Dr. Miramontes
Discharge Problem:
Incomplete miscarriage
Interventions
Interventions:
*Risk Screen - Suicide Last Done: 04/02/25 20:50
*General Assessment Last Done: 04/02/25 20:47
*Neglect/Abuse Screening Last Done: 04/02/25 20:50
*ED- Fall Risk Assessment Last Done: 04/02/25 20:47
*ED COVID-19 Vaccine History Last Done: 04/02/25 20:47
*Nursing Disposition Last Done: 04/03/25 01:31
ED-Female Genitourinary Assessment Last Done: 04/02/25 20:50
Discharge Date and Time
Discharge Date/Time: 04/03/25 01:31
[2025-04-02 20:56] LABS: Hematocrit 33.3 % (37.0-47.0); Hemoglobin 11.5 g/dL (12.0-16.0); Mean Corp Hgb Conc. 34.5 g/dL (33.0-37.0); Mean Corpuscular Hgb 30.1 pg (27.0-31.0); Mean Corpuscular Volume 87.2 fL (81.0-99.0); Mean Platelet Volume 9.1 fL (7.4-10.4); Platelet Count 320 10^3/uL (130-400); Red Blood Cell Count 3.82 10^6/uL (4.20-5.40); Red Cell Dist. Width 11.8 % (11.5-14.5); White Blood Cell Count 10.4 10^3/uL (4.8-10.8)
[2025-04-02] MEDS: PITOCIN 10 UNITS IM (20:56)
[2025-04-02] MEDS: NSS 500 IV (20:56)
[2025-04-02 21:00] VITALS: BP 110/72
[2025-04-02 21:40] VITALS: BP 132/78
[2025-04-02 22:00] VITALS: BP 114/79
[2025-04-02 23:00] VITALS: BP 116/65
[2025-04-03] VITALS (10 sets, daily range): BP systolic 100–129; BP diastolic 61–82; BMI 25.6
--- NOTE | 2025-04-03 02:28 | W.IMMPOSTOP ---
Surgical Immed Post Op Note
-
Primary Surgeon: Adarsh Miramontes DO
Assisting Surgeon: none
Pre-op Diagnosis: Retained placenta s/p spontaneous miscarriage at 15wk
Post-op Diagnosis: same
Procedure Performed: Suction Dilation and evacuation under ultrasound guidance
Anesthesia Type: general ET Dr. Mcclellan
Specimen / Cultures: products of conception/retained placenta
Estimated Blood Loss: 700ml
Complications: none
Operative Findings: Uterus enlarged with retained placenta. Products of conception removed from uterus under ultrasound guidance.
Some initial brisk bleeding responded to Tranexamic acid, cytotec 800mg [place].
Blood type A positive
Counts correct times 2.
--- NOTE | 2025-04-03 06:07 | PTCARENOTE ---
Pt admitted from PACU. Admissions called due inability to transfer pt. Pt assessed as per flow sheet. Pt denies pain and SOB. BP's are slightly soft. Peripad is clean thus far. Pt educated on s/s of heavy vaginal bleeding and when to call staff. Pt
reminded that she is currently on a clear liquid diet. Called pharmacy regarding Methadone orders. Pharmacy states they will call the clinic when it's open to verify dosage. No s/s of distress assessed. Will continue to monitor.
[2025-04-03 06:45] LABS: Blood Urea Nitrogen 9 mg/dl (7-17); Carbon Dioxide 22 mmol/L (22-30); Chloride 109 mmol/L (98-107); Estimated Creatinine Clearance 121 ml/min; Potassium 4.1 mmol/L (3.5-5.1); Sodium 135 mmol/L (135-145)
[2025-04-03 06:55] LABS: % Basophils 0.1 % (0-2); % Immature Granulocytes 0.4 % (0-0.5); % Lymphocytes 12.6 % (20.5-51.1); % Monocytes 2.1 % (1.7-9.3); % Neutrophils 84.8 % (42.2-75.2); Absolute Lymphocytes 1.2 10^3/uL (1.2-3.4); Absolute Monocytes 0.2 10^3/uL (0.1-0.6); Absolute Neutrophils 8.3 10^3/uL (1.4-6.5); Hematocrit 22.5 % (37.0-47.0); Hemoglobin 7.7 g/dL (12.0-16.0); Mean Corp Hgb Conc. 34.2 g/dL (33.0-37.0); Mean Corpuscular Volume 87.5 fL (81.0-99.0); Mean Platelet Volume 9.6 fL (7.4-10.4); Nucleated Red Blood Cells % 0 %; Platelet Count 266 10^3/uL (130-400); Red Blood Cell Count 2.57 10^6/uL (4.20-5.40); Red Cell Dist. Width 11.9 % (11.5-14.5); White Blood Cell Count 9.7 10^3/uL (4.8-10.8)
--- NOTE | 2025-04-03 07:18 | PTCARENOTE ---
Pt called RN stating she wanted to sign out AMA. Discussed with the pt the need for closer monitoring as her H&H fell precipitously. Pt stated she wanted to go home and cry. After discussing further pt stated she would what for the team to round. Pt
given quiet time in her room to reflect. Offered to listen to the pt discuss feelings. No s/s of distress assessed.
[2025-04-03] MEDS: TYLENOL 650 MG PO (08:43)
--- NOTE | 2025-04-03 10:10 | W.PN.OBG.DWH ---
Today's Communication / Plan
-
Stable for dc home
Assessment/Plan
-
1. Postop S/P Suction D&E for hemorrhage and reatined plcenta after miscarriage at 15 wks.
2. Anemia- asymptomatic
EBL from surgery estimated 800ml.
Pt is asymptomatic in terms of anemia. She declines transfusion. She is not orthostatic so I am comfortable with her going home.
3. HTN -takes nifedipine 30mgXE at home
She will come for postop follow up in 3-4 wks.
Reviewed s/s to call for: dizziness/lightheadedness or heavy bleeding should go to ER.
Nothing per vagina for 4 wks.
Sent tissue for chromosomal studies.
Subjective Data
-
Postop check
[place] is with . Tearful and asking to go home.
Takes her methadone at 5-6 am and was told pharmacy won't release until closer to 11 am.
Denies any dizziness or lightheadedness. Has been up to bathroom ambulating without symptoms.
States bleeding is light. Not passing any clots. No CP or shortness of breath
Objective Data
-
Laboratory Results
04/03/25 06:10
04/03/25 06:10
Vital Signs
Temp Pulse Resp BP Pulse Ox
99 F 87 16 104/61 97
04/03/25 07:00 04/03/25 07:00 04/03/25 07:00 04/03/25 07:00 04/03/25 07:00
VSS afeb
BP lying 124/80 Pulse 83
BP sitting 118/80 Pulse 96
BP standing 142/90 pulse 116
Cor regular rate
Pulm: breathing easily
Abd: soft NDNT
Sara: no active vaginal bleeding
ext: no calf pain or shortness of breath
[2025-04-03] MEDS: METHADONE 100 MG/10 ML 132 MG PO (10:43)
--- NOTE | 2025-04-03 11:11 | CM ---
CM following re: discharge planning.
Reviewed pt's chart, met with pt and pt's at bedside.
Pt is a 34 year old female, admitted with primary dx of s/p Suction Dilation and evacuation under ultrasound guidance.
Pt reports she lives with and 2 children 2SH, 3 steps to enter. 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
Discharge order noted. Both pt and her are aware and stated he will transport his home. No after care VN services indicated.
PCP: Lenny Merrill
Pharmacy: [facility]
D/C plan: home with no after care VN services. to transport.
== END 2025-04-03 11:11 | disposition home or self-care (01) ==
LOC: PACU 03:44
PROVIDERS: Obstetrics & Gynecology; ATTENDING PHYSICIAN Internal Medicine; EMERGENCY PHYSICIAN Emergency Medicine; FAMILY PHYSICIAN Family Medicine
DX: O03.4 Incomplete spontaneous abortion without complication (principal); O41.1420 Placentitis, second trimester, not applicable or unspecified; Z3A.15 15 weeks gestation of pregnancy
CPT/HCPCS: 59812; 88305; 88307; 76998; 80051; 82565; 84520; 85025; 85027; 86850; 86900; 86901; 96372; 99284

== ENCOUNTER 2025-05-08 16:05 | Observation (INO) | payer OTHER, SELFPAY ==
[2025-05-08] VITALS (24 sets, daily range): BP systolic 79–111; BP diastolic 48–73; BMI 25.7
[2025-05-08] MEDS: NSS 1000 IV (12:13)
[2025-05-08 12:22] LABS: % Basophils 0.8 % (0-2); % Eosinophils 1.9 % (0-6); % Immature Granulocytes 0.3 % (0-0.5); % Lymphocytes 37.2 % (20.5-51.1); % Monocytes 5.2 % (1.7-9.3); % Neutrophils 54.6 % (42.2-75.2); Absolute Basophils 0.1 10^3/uL (0-0.2); Absolute Eosinophils 0.2 10^3/uL (0-0.7); Absolute Lymphocytes 4.4 10^3/uL (1.2-3.4); Absolute Monocytes 0.6 10^3/uL (0.1-0.6); Absolute Neutrophils 6.4 10^3/uL (1.4-6.5); Hematocrit 30.1 % (37.0-47.0); Hemoglobin 9.3 g/dL (12.0-16.0); Mean Corp Hgb Conc. 30.9 g/dL (33.0-37.0); Mean Corpuscular Hgb 25.7 pg (27.0-31.0); Mean Corpuscular Volume 83.1 fL (81.0-99.0); Mean Platelet Volume 9.5 fL (7.4-10.4); Nucleated Red Blood Cells % 0 %; Platelet Count 408 10^3/uL (130-400); Red Blood Cell Count 3.62 10^6/uL (4.20-5.40); Red Cell Dist. Width 13.5 % (11.5-14.5); White Blood Cell Count 11.8 10^3/uL (4.8-10.8)
[2025-05-08] MEDS: TRANEXAMIC ACID 100 IV (12:29)
[2025-05-08 12:46] LABS: ALT (SGPT) 44 U/L (0-35); AST (SGOT) 49 U/L (14-36); Albumin 3.6 g/dl (3.5-5.0); Alkaline Phosphatase 97 U/L (38-126); Blood Urea Nitrogen 9 mg/dl (7-17); Calcium 8.7 mg/dl (8.4-10.2); Carbon Dioxide 22 mmol/L (22-30); Chloride 111 mmol/L (98-107); Estimated Creatinine Clearance 104 ml/min; Glucose 121 mg/dl (70-99); Potassium 3.7 mmol/L (3.5-5.1); Sodium 141 mmol/L (135-145); Total Bilirubin 0.3 mg/dl (0.2-1.3); Total Protein 6.5 g/dl (6.3-8.2); eGFR > 60.00
--- NOTE | 2025-05-08 12:54 | ED.GENMED ---
History of Present Illness
General
Chief Complaint: Vaginal Bleeding
Source: patient
Exam Limitations: none
Time Seen by Provider: 05/08/25 11:59
Nursing documentation reviewed up to this point in time: agreed with
History of Present Illness
History of Present Illness:
The patient is a pleasant 34-year-old female who underwent a D&C for an incomplete miscarriage on 04/03/2025. Patient reports that she has not had much of any vaginal bleeding since the end of March until this morning at around 9 AM when she suddenly
started passing large bright red clots of blood. Patient reports feeling lightheaded. She denies being on any blood thinners. She reports she took 4 home test and they were all negative.
Past History
Past History
ED Past Medical History: Psychiatric (anx/dep, PTSD, heroine addiction) and Other (Hepatitis C,)
ED Past Surgical History: and Other
Social History
Tobacco: Non-smoker
Alcohol: None
Drug: None
Personal:
Living: with family
Employment: Other
Family History
Family History: Hypertension
Review of Systems
Review of Systems
Allergies reviewed?: Yes
All Other Systems: ROS reviewed and negative except as documented in HPI and ROS
Constitutional: Reports no symptoms
EENT: Reports no symptoms
Respiratory: Reports no symptoms
Cardiac: Reports no symptoms
ABD/GI: Reports no symptoms
: Reports bleeding
Musculoskeletal: Reports no symptoms
Skin: Reports no symptoms
Neurological: Reports no symptoms
Endocrine: Reports no symptoms
Hematologic/Lymphatic: Reports no symptoms
Psychiatric: Reports no symptoms
Phy Exam
Physical Exam
Physical Exam:
Physical Exam
General: Patient appears pale but is fully awake and alert
Neck: supple. no meningeal signs. normal psoterior pharynx
Heart: Tachycardic
Lungs: no acute respiratory distress. clear bilaterally
Abdomen: normal bowel sounds. not tender. no CVAT
Neuro: alert and oriented. no focal neurological deficits
Skin: Pale, dry
Psychiatric: well kept. interactive and cooperative
Extremities: no edema. no calf tenderness. negative homans. good distal pulses
Course
Orders/Labs/Results
Orders:
Orders
05/08/25 12:06
Beta HCG Quantitative Urgent
Is this a screen?: No
05/08/25 12:07
0.9% Sodium Chloride 1000 ml [Nss] 1,000 ml IV BOLUS
05/08/25 12:09
EKG [Electrocardiogram (*1)] Urgent
Reason for Study: Bradycardia / Tachycardia
EKG- Treatment ONCE
05/08/25 12:14
Type+Screen Urgent
Complete Blood Count/With Diff Urgent
Comprehensive Metabolic Panel Urgent
05/08/25 12:21
US Pelvis Transvaginal Only Stat
Comment: bedside please
Reason For Exam: heavy vaginal bleeding, possible retained products
05/08/25 12:24
Tranexamic Acid 1000 mg/100 ml [Tranexamic Acid] 1,000 mg in 100 ml IV ONCE
05/08/25 12:29
TRIP MOTOR OPERATOR CONSULT Urgent
Consulting Provider: Massiel Davalos
Was physician already notified: Yes
Reason for consult: vag bleeding
05/08/25 13:15
Hemoglobin Urgent
05/08/25 13:35
* Blood Bank Products Urgent
's Orders: jimmie
Blood Bank Products: *Packed RBC Leuko(PRBC's)
Quantity: 1
Transfuse Today: Yes
Is product needed for scheduled surgery?: No
Reason: Bleeding
IV Insert/Care/Rem.- Treatment PRN
Abnormal Lab Results
05/08/25
12:14
WBC 11.8 H 10^3/uL
(4.8-10.8)
RBC 3.62 L 10^6/uL
(4.20-5.40)
Hgb 9.3 L g/dL
(12.0-16.0)
Hct 30.1 L %
(37.0-47.0)
MCH 25.7 L pg
(27.0-31.0)
MCHC 30.9 L g/dL
(33.0-37.0)
Plt Count 408 H 10^3/uL
(130-400)
Absolute Lymphs (auto) 4.4 H 10^3/uL
(1.2-3.4)
Chloride 111 H mmol/L
(98-107)
Glucose 121 H mg/dl
(70-99)
AST 49 H U/L
(14-36)
ALT 44 H U/L
(0-35)
Crossmatch IS Only See Detail
05/08/25 12:14
Vital Signs
Initial and Last Documented VS:
Initial Vital Signs
Temp Pulse Resp BP Pulse Ox
98.5 F 92 16 107/70 100
05/08/25 11:50 05/08/25 11:50 05/08/25 11:50 05/08/25 11:50 05/08/25 11:50
Last Documented Vital Signs
Temp Pulse Resp BP Pulse Ox
98.5 F 90 12 91/73 97
05/08/25 11:50 05/08/25 13:22 05/08/25 12:10 05/08/25 12:10 05/08/25 12:54
MDM/Problems Addressed
Differential Diagnosis Includes:
Retained products of conception, heavy menstrual period, ectopic
MDM/Problems Addressed:
Patient presents with acute heavy vaginal bleeding
*Radiology
Radiology exam reviewed: radiology read reviewed
*Pulse Oximetry
SaO2: 97
Oxygen Mode of Delivery: Room air
Patient hypoxic: no
Comment: Patient is 97% on room air
*EKG
Interpreted by ED Provider?: NA
*Sticker Machine Operator Interpretation
Rate: tachycardiac
Interpretation: abnormal
Rhythm: sinus
*Critical Care Note
Total Time (30-74mins, 75-104mins- exclusive of procedures): 45 minutes
comment:
45 minutes critical care given to patient including frequent reassessments of her heart rate, mental status, speaking to oil and gas field technician as well as reviewing her lab work and speaking to gynecology
Data Reviewed
Review of Other/Old Records Reveals: Operative Reports (Operative report reviewed from 04/03/2025 when patient had products removed for retained products)
Source: patient
Patient Management
Social determinants of health affecting care: Strong social support
Discussion with other providers: Other (Gynecology who agreed to evaluate the patient at bedside)
Escalation/DeEscalation of care consider admission/obs:
Patient's ultrasound shows retained products of conception.
Patient is tachycardic and hypotensive and is experiencing heavy vaginal bleeding. Therefore, written consent obtained for blood products and 1 unit of blood ordered.
Patient going to the OR with gynecology
ED Attending Note
-
Portions of this chart may have been created with voice recognition software.� Occasional wrong word or��sound alike� substitutions may have occurred due to the inherent limitations of voice recognition software.
Discharge Plan
Departure
Patient Disposition: OR
Date of Disposition: 05/08/25
Time of Disposition: 13:36
Admit to doctor: Susannah
Presentation/result/management discussed w/ accepting MD/DO: Susannah
Patient with high blood pressure during this ER visit?: No
Condition: Critical
Discharge Problem:
Retained products of conception, Acute blood loss anemia
Prescriptions:
No Action
methadone [Methadose] 10 MG/ML concentrate
132 mg PO DAILY
Patient Comments:
PATIENT HAS TAKE HOME BOTTLES AND HAS TWO 82MG BOTTLES FOR TODAY BUT I INFORMED SHE TOOK BOTH DOSES FOR TODAY 08/27/24 AND IS DUE TOMORROW 08/28/24
acetaminophen [Tylenol] 325 mg Tablet
650 mg PO Q4HPRN PRN (Reason: MILD PAIN)
therapeutic multivitamin Tablet
1 tab PO DAILY
ferrous sulfate 325 mg (65 mg iron) Tablet
650 mg PO DAILY
biotin 1 mg Tablet
1 mg PO DAILY
cholecalciferol (vitamin D3) [Vitamin D3] 25 mcg (1,000 unit) Tablet
25 mcg PO DAILY
cyclobenzaprine 10 mg Tablet
10 mg PO BID PRN (Reason: back spasms)
methadone 10 mg/5 mL Solution
132 mg PO .AFTERNOON
Rx Instructions:
PATIENT GETS METHADONE FILLED AT [facility]. SPOKE TO REMA WHO VERIFIED THERE WAS A RECENT DOSE INCREASE ON 04/01/25 TO 132MG DAILY. CONFIRMED THAT PATIENT RECEIVES 132MG DAILY AND 132MG IN THE AFTERNOON. THEIR PHONE
NUMBER IS [phone]
nifedipine 30 mg Tablet Extended Release
30 mg PO DAILY
famotidine [Pepcid] 20 mg Tablet
20 mg PO DAILY
1 tab PO DAILY
ibuprofen 600 mg Tablet
600 mg PO Q4HPRN PRN (Reason: mild cramps) Qty: 0 0RF
Referrals:
Lenny Merrill MD [Family Provider, Family Practice]
Interventions
Interventions:
*Risk Screen - Suicide Last Done: 05/08/25 12:02
*General Assessment Last Done: 05/08/25 12:02
*Neglect/Abuse Screening Last Done: 05/08/25 12:02
*ED- Fall Risk Assessment Last Done: 05/08/25 12:02
*ED COVID-19 Vaccine History Last Done: 05/08/25 12:02
ED-Female Genitourinary Assessment Last Done: 05/08/25 12:05
Discharge Date and Time
Print Language: NIUEAN
--- NOTE | 2025-05-08 13:57 | HPS.HSE ---
Family Physician
-
Family Physician: Lenny Merrill
Chief Complaint
-
heavy vaginal bleeding
History of Present Illness
HPI: Patient is a 34yo who presents to the ED with complaints of heavy vaginal bleeding. She had a D&E on 04/03 for a retained placenta after a 15 week demise. She reports she stopped bleeding about 10 days after the procedure. This morning
around 9 am, she started having heavy bleeding where she was soaking through pads and passing large clots so she came to the ED. She was feeling dizzy and lightheaded. She also had shortness of breath in the car that resolved. She says she has taken
4 tests at home that were negative. She denies fevers or chills or abdominal pain.
PMHx: GERD, HTN, hypothyroid, ADD, depression, anxiety, history of heroin use (sober x11yrs), hepatitis C, chronic back pain
Meds: Methadone 107mg BID, Procardia 30XL qD
Surghx: cholecystectomy, bariatric surgery, D&Ex2, PLTCS
All: NKDA, nickel
Socialhx: smokes 1/4ppd, history of heroin use, denies etoh use
Famhx: dad w/ HTN
OBHx: SVDx1 in 2013, PLTCS 2014, SABx1, 15wk PPROM demise
Pelvic Ultrasound:
EXAMINATION: Ultrasound pelvis transvaginal only
INDICATION: 34-year-old with heavy vaginal bleeding. Reported history of DC April 03, 2025.
COMPARISON: ultrasound from April 01, 2025. Intraoperative ultrasound from April 03, 2025.
FINDINGS: Pelvic ultrasound is performed with endovaginal technique.
The uterus measures 8.7 x 5.0 x 5.6 cm.
The endometrial stripe measures 15 mm, which is considered mildly thickened. There is also color and spectral Doppler flow within the thickened endometrial stripe. These findings would be suggestive of retained products of conception.
Neither ovary is visualized. No significant free pelvic fluid is seen.
IMPRESSION: Endometrial stripe measures 15 mm and there is color and spectral Doppler flow within the thickened endometrial stripe. These findings are suggestive of retained products of conception.
Medical History
Past Medical History
Past Medical History: Reports GERD, HTN and Hypothyroidism
Additional Past Medical History:
ADD, depression, anxiety, hx drug abuse, hep C, chronic back pain
Past Surgical History: Reports Cholecystectomy
Additional Past Surgical History:
bariatric suegery, D&Ex2, C/S
Social History
Tobacco: Smoker
Alcohol: None
Drug: Former User
Family History
Family History: Hypertension
Allergies / Home Medications
Allergies reflects when Allergies were last updated in [employer].
Home Medications with original date entered in [employer]
Allergy/Medication List:
All: NKDA, dad w/ HTN
Meds: Procardia 30XL qD, methadone 107mg BID
Review of Systems
-
A 12 point ROS was completed and negative except as noted: Yes
Physical Exam
Vital Signs
Vital Signs
Temp Pulse Resp BP Pulse Ox
98.5 F 90 12 91/73 97
05/08/25 11:50 05/08/25 13:22 05/08/25 12:10 05/08/25 12:10 05/08/25 12:54
Physical Exam
General: Well Developed and Other (pale)
HEENT: NormoCephalic
Respiratory: Non Labored Respirations
Cardiac: Tachycardia
GI: Soft and Non Tender
Genito-urinary: Other (SSE: vaginal vault filled with blood with multiple large clots when cleared, more brisk bleeding)
Skin: Warm and Dry
Neuro: Awake and Alert
Psych: Calm
Laboratory Results
-
05/08/25 12:14
Laboratory Results
Total Bilirubin 0.3 mg/dl (0.2-1.3) 05/08/25 12:14
AST 49 U/L (14-36) H 05/08/25 12:14
ALT 44 U/L (0-35) H 05/08/25 12:14
Alkaline Phosphatase 97 U/L (38-126) 05/08/25 12:14
Impression/Plan
-
IMPRESSION:
Patient is a 34yo presents with heavy vaginal bleeding, found to have retained products of conception
PLAN:
- Pelvic ultrasound concerning for retained products of conception
- Patient tachycardic and hypotensive on admission to ED. Hemoglobin 9.3.
- Patient consented for dilation and evacuation including bleeding, infection, damage to surrounding structures, uterine perforation, incomplete evacuation, Asherman's syndrome and need for future operations. Consents signed. Patient consented for a
blood transfusion including risks in case of emergency
- Will re-evaluate patient after surgery for possible discharge home. Aware she may need a blood transfusion given the amount of bleeding she has had.
[2025-05-08 16:42] LABS: Hematocrit 26.2 % (37.0-47.0); Hemoglobin 8.3 g/dL (12.0-16.0); Mean Corp Hgb Conc. 31.7 g/dL (33.0-37.0); Mean Corpuscular Hgb 26.5 pg (27.0-31.0); Mean Corpuscular Volume 83.7 fL (81.0-99.0); Platelet Count 242 10^3/uL (130-400); Red Blood Cell Count 3.13 10^6/uL (4.20-5.40); Red Cell Dist. Width 14.9 % (11.5-14.5); White Blood Cell Count 10.5 10^3/uL (4.8-10.8)
--- NOTE | 2025-05-08 16:46 | OR.RPT ---
Operative Report
Operative Report
Procedure date: 05/08/2025
Preop diagnosis: Retained products of conception
Postop diagnosis: same
Procedure: Dilation and evacuation under ultrasound guidance
Surgeon: Massiel Davalos
Anesthesia: General, Chambers
EBL: 450mL
Pathology: retained products of conception
Findings: Bimanual exam revealed uterus 10wk size, cervix 1cm dilated. Large blood clots present in the vaginal vault with brisk bleeding from the cervix. The endometrial stripe appeared thin on ultrasound after suction and curettage. Patient
continued to have brisk bleeding. Methergine 0.2mg IM and Cytotec 800mcg AR given. Ultrasound was performed again and there did not appear to be anymore retained products. There was improvement in bleeding at the end of the procedure.
Complications: none
Indication: Patient is a 34yo who presented to the ED with complaints of heavy vaginal bleeding. She had a 15 week miscarriage on 04/03 and underwent dilation and evacuation for a retained placenta. She said she stopped bleeding after 10 days
but then this morning around 9am, she started having heavy bleeding and passing large clots. She had soaked through multiple pads. In the ED, patient was tachycardic and hypotensive. 1g of TXA was given. On speculum exam, there was brisk bleeding
with large clots. Pelvic ultrasound was concerning for retained products of conception. Recommendation was made to proceed with dilation and evacuation under ultrasound guidance. Risks, benefits and alternatives were reviewed and all questions
answered. Operating room was notified for urgent procedure.
Procedure: Patient was taken to the operating room and placed under general anesthesia. She was given 200mg of Doxycycline IV for antibiotic prophylaxis. 1u of pRBCs was given during the procedure given the amount of blood loss and hypotension. She
was placed in the dorsal lithotomy position. The vagina was prepped with Betadine. She was draped in the normal sterile fashion. Time out was performed. The bladder was not drained to allow for ultrasound guidance. A weighted speculum was placed in
the posterior vagina and a Mae retractor in the posterior aspects of the vagina revealing good visualization of the cervix. The anterior lip of the cervix was grasped with a single tooth tenaculum. A 10mm curved rigid suction curette was advanced
to the fundus. Vacuum was applied and suction curettage was performed in a rotational motion in all quadrants of the uterus. 3 passes were performed. Care was taken not to introduce the suction curette with suction applied. A sharp curettage was
then performed again until uterine cry was felt in all quadrants of the uterus. Retained products of conception were sent to pathology for evaluation. There was still brisk bleeding from the cervical os. Methergine 0.2mg IM was given and there
continued to be brisk bleeding. Cytotec 800mcg AR was given and Dr. Smith was called in for assistance given the amount of bleeding. Bimanual massage was performed. After 10-15 minutes, there was significant improvement in her bleeding. Uterus was
firm. The tenaculum was removed from the cervix and was hemostatic. All instruments were removed from the vagina. All sponge and instrument counts were correct times 2. The patient was transferred to PACU in stable condition. Given the amount of
blood loss prior to procedure and during procedure, another unit of blood was ordered to be given in PACU. Patient to stay overnight for observation and to trend her hemoglobin.
[2025-05-08 16:52] LABS: Beta HCG Quantitative 11.38 mIU/ml
[2025-05-08] MEDS: METHADONE 100 MG/10 ML 132 MG PO (18:34)
--- NOTE | 2025-05-08 18:43 | PTCARENOTE ---
Pt arrived to [facility] s/p D&E. Pt received with PRBCs running by gravity. Pt oriented to room and call hook. Bed locked and in lowest position. Admission questions completed. Care ongoing.
[2025-05-08] MEDS: ATARAX 50 MG PO (22:04)
[2025-05-09 00:30] LABS: Hemoglobin 8.7 g/dL (12.0-16.0); Mean Corp Hgb Conc. 33.5 g/dL (33.0-37.0); Mean Corpuscular Hgb 27.5 pg (27.0-31.0); Mean Corpuscular Volume 82.3 fL (81.0-99.0); Mean Platelet Volume 10.1 fL (7.4-10.4); Platelet Count 221 10^3/uL (130-400); Red Blood Cell Count 3.16 10^6/uL (4.20-5.40); Red Cell Dist. Width 14.9 % (11.5-14.5); White Blood Cell Count 5.6 10^3/uL (4.8-10.8)
[2025-05-09 03:00] VITALS: BP 118/64
[2025-05-09 06:21] LABS: Hematocrit 28.8 % (37.0-47.0); Hemoglobin 9.6 g/dL (12.0-16.0); Mean Corp Hgb Conc. 33.3 g/dL (33.0-37.0); Mean Corpuscular Hgb 27.4 pg (27.0-31.0); Mean Corpuscular Volume 82.1 fL (81.0-99.0); Mean Platelet Volume 9.6 fL (7.4-10.4); Platelet Count 266 10^3/uL (130-400); Red Blood Cell Count 3.51 10^6/uL (4.20-5.40); Red Cell Dist. Width 14.8 % (11.5-14.5); White Blood Cell Count 11.1 10^3/uL (4.8-10.8)
[2025-05-09 08:00] VITALS: BP 117/69
[2025-05-09] MEDS: PEPCID 20 MG PO (08:29)
[2025-05-09] MEDS: FEOSOL 650 MG PO (08:29)
[2025-05-09] MEDS: METHADONE 100 MG/10 ML 132 MG PO (08:29)
--- NOTE | 2025-05-09 10:11 | W.PN.OBG.DWH ---
Today's Communication / Plan
-
continue with iron supplementation, pnv
rto 6 wks
Assessment/Plan
-
POD#1 suction d and e
retained poc
vaginal bleeding
s/p 2 u prbc
Subjective Data
-
no complaints
minimal bleeding
Objective Data
-
Laboratory Results
05/09/25 05:59
05/08/25 12:14
Vital Signs
Temp Pulse Resp BP Pulse Ox
98.9 F 90 16 117/69 100
05/09/25 08:00 05/09/25 08:00 05/09/25 08:00 05/09/25 08:00 05/09/25 08:00
lungs cl
cor rrr
abd +bs soft, nt
ext nt
--- NOTE | 2025-05-09 10:47 | CM ---
CM noted dc order and attempted bedside meeting
Pt discharged prior to CM meeting with her and reviewing OBS notice
Per chart review, no dc needs noted
== END 2025-05-09 10:40 | disposition home or self-care (01) ==
LOC: 2 SOUTH 16:05
PROVIDERS: Anesthesiology; ADMITTING PHYSICIAN Student in an Organized Health Care Education/Training Program; EMERGENCY PHYSICIAN Emergency Medicine; FAMILY PHYSICIAN Family Medicine
PROC: 10D17Z9 Manual Extraction of Products of Conception, Retained, Via Natural or Artificial Opening (ICD-10-PCS; 2025-05-08)
PROC: 30233N1 Transfusion of Nonautologous Red Blood Cells into Peripheral Vein, Percutaneous Approach (ICD-10-PCS; 2025-05-08)
DX: O03.4 Incomplete spontaneous abortion without complication (principal); R00.0 Tachycardia, unspecified; R00.1 Bradycardia, unspecified; D62 Acute posthemorrhagic anemia; F17.210 Nicotine dependence, cigarettes, uncomplicated; N92.0 Excessive and frequent menstruation with regular cycle; I95.9 Hypotension, unspecified
CPT/HCPCS: 59812; 36430; P9021; 88305; 76830; 76998; 80053; 84702; 85025; 85027; 86850; 86900; 86901; 86920; 87070; 93005; 96361; 96374; 99291; G0378; P9016

== ENCOUNTER → 2025-05-25 13:15 | Outpatient (REF) | payer OTHER, SELFPAY | LOC: HWRAD 13:15 | PROVIDERS: ATTENDING PHYSICIAN Obstetrics & Gynecology; FAMILY PHYSICIAN Family Medicine | DX: O73.0 Retained placenta without hemorrhage (principal) | CPT/HCPCS: 76830; 76856 ==

== ENCOUNTER → 2025-10-02 11:13 | Outpatient (REF) | payer OTHER, SELFPAY | LOC: RAD 11:13 | PROVIDERS: ATTENDING PHYSICIAN Obstetrics & Gynecology; FAMILY PHYSICIAN Family Medicine | DX: O26.851 Spotting complicating pregnancy, first trimester (principal) | CPT/HCPCS: 76801 ==

== ENCOUNTER → 2025-10-14 13:06 | Outpatient (REF) | payer OTHER, SELFPAY | LOC: RAD 13:06 | PROVIDERS: ATTENDING PHYSICIAN Obstetrics & Gynecology; FAMILY PHYSICIAN Family Medicine | DX: O26.851 Spotting complicating pregnancy, first trimester (principal); Z34.90 Encounter for supervision of normal pregnancy, unspecified, unspecified trimester | CPT/HCPCS: 76801; 76817 ==

== ENCOUNTER → 2025-11-04 12:59 | Outpatient (REF) | payer OTHER, SELFPAY | LOC: RAD 12:59 | PROVIDERS: ATTENDING PHYSICIAN Obstetrics & Gynecology; FAMILY PHYSICIAN Family Medicine | DX: O26.899 Other specified pregnancy related conditions, unspecified trimester (principal); R10.9 Unspecified abdominal pain | CPT/HCPCS: 76801 ==